=== PATIENT | male | born 1965 | race African-American/Black ===

== ENCOUNTER 2020-11-14 21:12 | Inpatient (IN) | payer MEDICARE ==
[~2020-11-14] VITALS: Ht 172.7 cm; Wt 92.1 kg
[2020-11-14] MEDS ORDERED: METHYLPREDNISOLONE SOD SUCC 125 MG/2 ML VIAL IV STA (21:19)
[2020-11-14] MEDS ORDERED: IPRATROPIUM BROMIDE (0.02%) 0.5MG/2.5ML NEB HHN STA (21:19)
[2020-11-14] MEDS ORDERED: ALBUTEROL (0.083%) 2.5MG/3ML NEB HHN STA (21:19)
[2020-11-14] MEDS ORDERED: NITROGLYCERIN 50MG PREMIX 250 ML IV ONE (21:30)
[2020-11-14] MEDS ORDERED: FUROSEMIDE 40MG/4ML VIAL IV ONE (21:30)
[2020-11-14] MEDS ORDERED: MAGNESIUM 2 G PREMIX 50 ML IV ONE (21:30)
[2020-11-14 22:10] LABS: BASOPHILS % 0.5 % (0.0-2.0); EOSINOPHILS % 3.1 % (0.0-5.0); HEMOGLOBIN. 15.2 g/dL (14.0-18.0); LYMPHOCYTES % 32.4 % (20.0-50.0); MEAN CORPUSCULAR HEMOGLOBIN 31.9 pg (28.0-32.0); MEAN CORPUSCULAR VOLUME 94.5 fL (80.0-94.0); MEAN PLATELET VOLUME 10.1 fl (7.4-10.4); MONOCYTES % 7.4 % (2.0-8.0); NEUTROPHILS % 56.6 % (40.0-76.0); PLATELET 211 x1000/uL (130-400); RED BLOOD CELL COUNT 4.76 mill/uL (4.7-6.1); RED CELL DISTRIBUTION WIDTH 13.4 % (11.6-14.6)
[2020-11-14 22:13] LABS: CHLORIDE 112 mEq/L (98-107)
[2020-11-14] MEDS ORDERED: ASPIRIN 325MG EC TABLET PO NR (23:15)
[2020-11-14 23:43] LABS: BG BASE EXCESS -2.2 mmol/L (-2.0-2.0); BG CARBOXYHEMOGLOBIN 0.5 % (0.5-1.5); BG DEOXYHEMOGLOBIN 0.3 % (0.0-5.0); BG FRACTION INSPIRED OXYGEN 100; BG HCO3 ACT 22.8 mmol/L (22.0-26.0); BG METHEMOGLOBIN 0.4 % (0.0-1.5); BG OXYGEN SATURATION 99.7 % (92.0-98.5); BG OXYHEMOGLOBIN 98.8 % (94.0-97.0); BG PCO2 40.4 mmHg (35.0-45.0); BG PO2 490.5 mmHg (75.0-100.0); BG SAMPLE SITE RIGHT RADIAL; BG VENT MODE MASK - BIPAP
[2020-11-14] MEDS ORDERED: MORPHINE SULFATE 2 MG/ML CPJ (NOT FOR IM USE) IV PRN (23:45)
[2020-11-14] MEDS ORDERED: ACETAMINOPHEN 325MG TABLET PO PRN (23:45)
[2020-11-14] MEDS ORDERED: HYDROCODONE/ACETAMINOPHEN 5/325MG TABLET PO PRN (23:45)
[2020-11-14] MEDS ORDERED: ONDANSETRON HCL 4MG/2ML INJ IV PRN (23:45)
[2020-11-14] MEDS ORDERED: LORAZEPAM 2MG/ML CPJ IV PRN (23:45)
[2020-11-14] MEDS ORDERED: IPRATROPIUM/ALBUTEROL 0.5-3(2.5)MG/3ML NEB NEB PRN (23:45)
[2020-11-15] MEDS ORDERED: CLONIDINE 0.2MG TABLET PO PRN
[2020-11-15 05:12] LABS: HEMATOCRIT. 46.1 % (42.0-52.0); HEMOGLOBIN. 15.7 g/dL (14.0-18.0); MEAN CORPUSCULAR HEMOGLOBIN 32.1 pg (28.0-32.0); MEAN CORPUSCULAR VOLUME 94.5 fL (80.0-94.0); PLATELET 165 x1000/uL (130-400); RED BLOOD CELL COUNT 4.88 mill/uL (4.7-6.1); RED CELL DISTRIBUTION WIDTH 13.1 % (11.6-14.6)
[2020-11-15 05:17] LABS: CHLORIDE 112 mEq/L (98-107)
[2020-11-15 05:24] LABS: PHOSPHORUS 2.3 mg/dL (2.5-4.9)
[2020-11-15 05:26] LABS: CREATINE KINASE 154 IU/L (39-308)
[2020-11-15 05:29] LABS: CREATINE KINASE MB FRACTION 2.7 ng/mL (0.5-3.6)
[2020-11-15 09:45] LABS: PLATELET ESTIMATE NORMAL
[2020-11-15] MEDS ORDERED: DOCUSATE SODIUM 100MG CAPSULE PO PRN (09:45)
[2020-11-15] MEDS ORDERED: MAGNESIUM/ALUMINUM HYDROXIDE/SIMETHICONE 30ML UDC PO PRN (09:45)
[2020-11-15] MEDS: ASPIRIN 81MG EC TABLET PO SCH (09:48)
[2020-11-15] MEDS: ENOXAPARIN 30MG/0.3ML SYR SUBCUT SCH ×2 (09:48→21:07)
[2020-11-15] MEDS: FUROSEMIDE 40MG/4ML VIAL IV SCH ×2 (09:48→17:23)
[2020-11-15] MEDS: METOPROLOL TARTRATE 25MG TABLET PO SCH ×3 (09:51→21:07)
[2020-11-15] MEDS ORDERED: NALOXONE HCL 0.4MG/ML VIAL IV PRN (10:00)
[2020-11-15] MEDS ORDERED: POTASSIUM PHOS,M-BASIC-D-BASIC 10 MMOL in DEXT 5% WATER 246.6667 ML IV NR (12:00)
[2020-11-15 16:21] VITALS: BP 126/87
[2020-11-15 17:00] VITALS: BP 126/87
[2020-11-15] MEDS ORDERED: ASPI-1497 MT (17:37)
[2020-11-15] MEDS ORDERED: FURO20TA4 PO (17:37)
[2020-11-15] MEDS ORDERED: CARV12.545 MT (17:38)
[2020-11-15] MEDS ORDERED: SPIR25TA6 PO (17:39)
[2020-11-15 20:00] VITALS: BP 120/83
[2020-11-15 20:17] LABS: CREATINE KINASE 167 IU/L (39-308)
[2020-11-15 20:18] LABS: CREATINE KINASE MB FRACTION 3.7 ng/mL (0.5-3.6)
[2020-11-16] VITALS: BP 105/79
[2020-11-16 01:13] LABS: CLARITY URINE CLEAR (CLEAR); COLOR URINE YELLOW (YELLOW); KETONES URINE TRACE (NEGATIVE); LEUKOCYTE ESTERASE URINE NEGATIVE (NEGATIVE); NITRITE URINE NEGATIVE (NEGATIVE); OCCULT BLOOD URINE NEGATIVE (NEGATIVE); PH URINE 5.5 (4.5-8.0); PROTEIN URINE 1+ (NEGATIVE); SPECIFIC GRAVITY URINE 1.022 (1.005-1.030); UROBILINOGEN URINE 0.2 E.U./dL (0.2-1.0)
[2020-11-16 01:23] LABS: *AMPHETAMINES SCREEN URINE NEGATIVE (NEGATIVE); *BARBITURATES SCREEN URINE NEGATIVE (NEGATIVE); *BENZODIAZEPINES SCREEN URINE NEGATIVE (NEGATIVE); *COCAINE SCREEN URINE NEGATIVE (NEGATIVE); METHADONE URINE SCREEN NEGATIVE (NEGATIVE)
[2020-11-16 01:24] LABS: CANNABINOID URINE SCREEN NEGATIVE (NEGATIVE); OPIATES URINE SCREEN NEGATIVE (NEGATIVE); PHENCYCLIDINE URINE SCREEN NEGATIVE (NEGATIVE)
[2020-11-16 04:00] VITALS: BP 104/74
[2020-11-16] MEDS ORDERED: OMEPRAZOLE 20MG CAPSULE EXTENDED RELEASE PO SCH (06:30)
[2020-11-16 08:00] VITALS: BP 113/75
[2020-11-16] MEDS: ASPIRIN 81MG EC TABLET PO SCH (08:44)
[2020-11-16] MEDS: METOPROLOL TARTRATE 25MG TABLET PO SCH (08:45)
[2020-11-16] MEDS: FUROSEMIDE 40MG/4ML VIAL IV SCH (08:45)
[2020-11-16] MEDS: ENOXAPARIN 30MG/0.3ML SYR SUBCUT SCH (08:45)
[2020-11-16 10:42] LABS: BASOPHILS % 0.3 % (0.0-2.0); EOSINOPHILS % 1.1 % (0.0-5.0); HEMATOCRIT. 45.9 % (42.0-52.0); HEMOGLOBIN. 15.6 g/dL (14.0-18.0); LYMPHOCYTES % 21.3 % (20.0-50.0); MEAN CORPUSCULAR VOLUME 94.3 fL (80.0-94.0); MEAN PLATELET VOLUME 10.4 fl (7.4-10.4); MONOCYTES % 7.3 % (2.0-8.0); PLATELET 166 x1000/uL (130-400); RED BLOOD CELL COUNT 4.87 mill/uL (4.7-6.1); RED CELL DISTRIBUTION WIDTH 13.3 % (11.6-14.6)
[2020-11-16 10:52] LABS: CHLORIDE 106 mEq/L (98-107)
[2020-11-16 10:59] LABS: PHOSPHORUS 3.3 mg/dL (2.5-4.9)
[2020-11-16 11:00] LABS: LDL CHOLESTEROL 134 mg/dL (5-100)
[2020-11-16 11:01] LABS: HDL CHOLESTEROL 50 mg/dL (40-59); T4 FREE 0.97 ng/dL (0.76-1.46)
[2020-11-16 12:00] VITALS: BP 109/73
[2020-11-16] MEDS ORDERED: FURO-151 MT (12:31)
[2020-11-16 13:32] VITALS: BP 109/73
== END 2020-11-16 16:27 | disposition home or self-care (01) | DRG 291 ==
LOC: ER 21:12 → SUPCPDRO 23:42 → MICUSO 23:43 → EDBD 23:43 → EDBEDREQ 23:58 → EDBEDREQSVC 23:58 → EDBEDREQTM 23:58 → 7EST 11-15 15:47
PROVIDERS: ADMIT Internal Medicine Nephrology; ATTEND Internal Medicine Nephrology
PROC: 5A09357 Assistance with Respiratory Ventilation, Less than 24 Consecutive Hours, Continuous Positive Airway Pressure (ICD-10-PCS; principal; 2020-11-14)
DX: I11.0 Hypertensive heart disease with heart failure (principal); J96.01 Acute respiratory failure with hypoxia; I50.21 Acute systolic (congestive) heart failure; J44.9 Chronic obstructive pulmonary disease, unspecified; E83.39 Other disorders of phosphorus metabolism; E83.41 Hypermagnesemia; E87.8 Other disorders of electrolyte and fluid balance, not elsewhere classified
CPT/HCPCS: 36415; 36600; 71045; 80048; 80053; 80061; 80076; 80305; 81003; 82375; 82550; 82553; 82805; 83735; 83880; 84100; 84439; 84443; 84484; 85025; 93005; 93306; 93970; 94660; 97165; 99291; J1650; J1940; J2930; J3475; J3490; J7060

== ENCOUNTER 2023-10-26 20:41 | Inpatient (IN) | payer SELFPAY ==
[~2023-10-26] VITALS: Ht 172.7 cm; Wt 89.9 kg
[2023-10-26 20:33] VITALS: RESP 33
[~2023-10-26 20:41] MED LIST: ASPI-1497 MT; CARV12.545 MT; FURO-151 MT; FURO20TA4 PO; SPIR25TA6 PO
[2023-10-26] MEDS ORDERED: NITROGLYCERIN 50MG PREMIX 250 ML IV ONE (20:45)
[2023-10-26] MEDS: FUROSEMIDE 40MG/4ML VIAL IV ONE (21:02)
[2023-10-26] MEDS: ASPIRIN 81MG TABLET PO ONE (21:02)
[2023-10-26 21:13] LABS: CHLORIDE 108 mEq/L (98-107); POTASSIUM 3.9 mEq/L (3.5-5.1); SODIUM 141 mEq/L (136-145)
[2023-10-26 21:14] LABS: BASOPHILS % 0.7 % (0.0-2.0); CARBON DIOXIDE 19 mEq/L (21-32); EOSINOPHILS % 1.9 % (0.0-5.0); HEMATOCRIT. 42.9 % (42.0-52.0); HEMOGLOBIN. 14.2 g/dL (14.0-18.0); LYMPHOCYTES % 33.1 % (20.0-50.0); MEAN CORPUSCULAR HGB CONC 33.1 g/dL (31.0-37.0); MEAN CORPUSCULAR VOLUME 96.7 fL (80.0-94.0); MEAN PLATELET VOLUME 10.4 fl (7.4-10.4); NEUTROPHILS % 57.3 % (40.0-76.0); PLATELET 188 x1000/uL (130-400); RED BLOOD CELL COUNT 4.44 mill/uL (4.7-6.1); RED CELL DISTRIBUTION WIDTH 13.6 % (11.6-14.6); WHITE BLOOD COUNT 8.5 x1000/uL (4.5-11.0)
[2023-10-26 21:15] LABS: CALCIUM 8.4 mg/dL (8.7-10.4)
[2023-10-26 21:19] LABS: CREATININE 1.6 mg/dL (0.6-1.3); GLUCOSE 247 mg/dL (70-105); UREA NITROGEN BLOOD 14 mg/dL (9-23)
[2023-10-26 21:20] VITALS: RESP 20
[2023-10-26 21:20] LABS: TROPONIN I HIGH SENSITIVITY 27 ng/L (3.0-53)
[2023-10-26] MEDS: NITROGLYCERIN 50MG PREMIX 250 ML IV ONE (21:48)
[2023-10-26] MEDS ORDERED: IPRATROPIUM/ALBUTEROL 0.5-3(2.5)MG/3ML NEB NEB PRN (22:00)
[2023-10-26] MEDS ORDERED: CLONIDINE 0.1MG TABLET PO PRN (22:00)
[2023-10-26] MEDS ORDERED: NITROGLYCERIN 0.4MG TABLET SL SL PRN (22:00)
[2023-10-26] MEDS ORDERED: MAGNESIUM/ALUMINUM HYDROXIDE/SIMETHICONE 30ML UDC PO PRN (22:00)
[2023-10-26] MEDS ORDERED: ZOLPIDEM TARTRATE 5MG TABLET PO PRN (22:00)
[2023-10-26] MEDS ORDERED: ONDANSETRON HCL 4MG/2ML INJ IV PRN (22:00)
[2023-10-26] MEDS ORDERED: DOCUSATE SODIUM 100MG CAPSULE PO PRN (22:00)
[2023-10-26] MEDS ORDERED: GUAIFENESIN 200MG/10ML SUGAR FREE UDC PO PRN (22:00)
[2023-10-26] MEDS ORDERED: ACETAMINOPHEN 325MG TABLET PO PRN ×2 (22:00)
[2023-10-26 22:30] VITALS: RESP 20
[2023-10-26] MEDS ORDERED: DEXTROSE 50% WATER 50ML SYRINGE IV PRN (22:30)
[2023-10-26 22:50] LABS: IRON 95 ug/dL (65-175); TRIGLYCERIDE 64 mg/dL (0-150)
[2023-10-26 22:51] LABS: LDL CHOLESTEROL 139 mg/dL (5-100)
[2023-10-26 22:52] LABS: CHOLESTEROL 193 mg/dL (<200); HDL CHOLESTEROL 54 mg/dL (>55)
[2023-10-26 22:53] LABS: TOTAL IRON BINDING CAPACITY 262 ug/dl (250-425)
[2023-10-26 22:55] LABS: T4 FREE 0.84 ng/dL (0.89-1.76); THYROID STIMULATING HORMONE 3.61 uIU/mL (0.55-4.78)
[2023-10-26] MEDS: ENOXAPARIN 40MG/0.4ML SYR SUBCUT SCH (23:11)
[2023-10-26 23:27] LABS: FOLIC ACID (FOLATE) SERUM > 20.00 ng/mL (>5.38); VITAMIN B12 SERUM 341 pg/mL (211-911)
[2023-10-27] VITALS (16 sets, daily range): BP systolic 86–130; BP diastolic 57–80; PULSE 61–70; RESP 16–24; TEMP 97.6–99.4
[2023-10-27 01:05] LABS: CREATINE KINASE MB FRACTION 3.5 ng/mL (0.5-3.6)
[2023-10-27] MEDS: BLOOD SUGAR DIAGNOSTIC STRIP TEST SCH (07:30)
[2023-10-27] MEDS: INSULIN LISPRO 100 UNITS/ML SUBCUT SCH (08:00)
[2023-10-27] MEDS: FUROSEMIDE 40MG/4ML VIAL IVP SCH (08:34)
[2023-10-27] MEDS: ASPIRIN 325MG EC TABLET PO SCH (08:34)
[2023-10-27] MEDS: FAMOTIDINE 20MG TABLET PO SCH (08:35)
[2023-10-27] MEDS: SPIRONOLACTONE 25MG TABLET PO SCH (08:36)
[2023-10-27 10:24] LABS: BASOPHILS % 0.2 % (0.0-2.0); EOSINOPHILS % 0.6 % (0.0-5.0); HEMATOCRIT. 43.2 % (42.0-52.0); HEMOGLOBIN. 14.2 g/dL (14.0-18.0); LYMPHOCYTES % 17.2 % (20.0-50.0); MEAN CORPUSCULAR HEMOGLOBIN 31.5 pg (28.0-32.0); MEAN CORPUSCULAR HGB CONC 32.9 g/dL (31.0-37.0); MEAN CORPUSCULAR VOLUME 95.8 fL (80.0-94.0); MEAN PLATELET VOLUME 10.5 fl (7.4-10.4); MONOCYTES % 6.7 % (2.0-8.0); NEUTROPHILS % 75.3 % (40.0-76.0); PLATELET 154 x1000/uL (130-400); RED BLOOD CELL COUNT 4.51 mill/uL (4.7-6.1); RED CELL DISTRIBUTION WIDTH 13.3 % (11.6-14.6); WHITE BLOOD COUNT 7.5 x1000/uL (4.5-11.0)
[2023-10-27 10:40] LABS: CHLORIDE 107 mEq/L (98-107); POTASSIUM 3.4 mEq/L (3.5-5.1); SODIUM 141 mEq/L (136-145)
[2023-10-27 10:41] LABS: CALCIUM 8.9 mg/dL (8.7-10.4); CARBON DIOXIDE 26 mEq/L (21-32)
[2023-10-27 10:46] LABS: CREATININE 1.2 mg/dL (0.6-1.3); GLUCOSE 151 mg/dL (70-105); UREA NITROGEN BLOOD 14 mg/dL (9-23)
[2023-10-27 10:47] LABS: ALANINE AMINOTRANSFERASE 11 IU/L (10-49)
[2023-10-27 10:48] LABS: ASPARTATE AMINOTRANSFERASE 22 IU/L (<34); BILIRUBIN TOTAL 1.1 mg/dL (0.1-1.0); PHOSPHORUS 3.4 mg/dL (2.5-4.9); PROTEIN TOTAL 6.7 g/dL (6.0-8.3)
[2023-10-27 10:56] LABS: TROPONIN I HIGH SENSITIVITY 88 ng/L (3.0-53)
[2023-10-27 16:24] LABS: TROPONIN I HIGH SENSITIVITY 63 ng/L (3.0-53)
[2023-10-27 23:01] LABS: *AMPHETAMINES SCREEN URINE NEGATIVE (NEGATIVE); *BARBITURATES SCREEN URINE NEGATIVE (NEGATIVE); *BENZODIAZEPINES SCREEN URINE NEGATIVE (NEGATIVE)
[2023-10-27 23:02] LABS: *COCAINE SCREEN URINE NEGATIVE (NEGATIVE); CANNABINOID URINE SCREEN NEGATIVE (NEGATIVE); ECSTASY MDMA SCREEN URINE NEGATIVE (NEGATIVE); METHADONE URINE SCREEN NEGATIVE (NEGATIVE); OPIATES URINE SCREEN NEGATIVE (NEGATIVE); PHENCYCLIDINE URINE SCREEN NEGATIVE (NEGATIVE)
[2023-10-28] VITALS (9 sets, daily range): BP systolic 92–113; BP diastolic 61–81; PULSE 63–95; RESP 14–26; TEMP 97.8–98.1; O2SAT 96
[2023-10-28 05:47] LABS: BASOPHILS % 0.3 % (0.0-2.0); EOSINOPHILS % 2.4 % (0.0-5.0); HEMATOCRIT. 41.4 % (42.0-52.0); HEMOGLOBIN. 13.9 g/dL (14.0-18.0); MEAN CORPUSCULAR HEMOGLOBIN 32.2 pg (28.0-32.0); MEAN CORPUSCULAR HGB CONC 33.6 g/dL (31.0-37.0); MEAN CORPUSCULAR VOLUME 95.9 fL (80.0-94.0); MEAN PLATELET VOLUME 10.4 fl (7.4-10.4); MONOCYTES % 11.2 % (2.0-8.0); NEUTROPHILS % 55.1 % (40.0-76.0); PLATELET 143 x1000/uL (130-400); RED BLOOD CELL COUNT 4.31 mill/uL (4.7-6.1); RED CELL DISTRIBUTION WIDTH 13.3 % (11.6-14.6); WHITE BLOOD COUNT 5.8 x1000/uL (4.5-11.0)
[2023-10-28 05:57] LABS: CARBON DIOXIDE 28 mEq/L (21-32); CHLORIDE 106 mEq/L (98-107); POTASSIUM 3.6 mEq/L (3.5-5.1); SODIUM 141 mEq/L (136-145)
[2023-10-28 05:58] LABS: CALCIUM 8.9 mg/dL (8.7-10.4)
[2023-10-28 06:02] LABS: CREATININE 1.2 mg/dL (0.6-1.3); GLUCOSE 87 mg/dL (70-105)
[2023-10-28 06:03] LABS: UREA NITROGEN BLOOD 12 mg/dL (9-23)
[2023-10-28 06:04] LABS: ALANINE AMINOTRANSFERASE 11 IU/L (10-49); ALBUMIN 3.7 g/dL (3.2-4.8); ASPARTATE AMINOTRANSFERASE 17 IU/L (<34)
[2023-10-28 06:05] LABS: BILIRUBIN TOTAL 0.6 mg/dL (0.1-1.0); PHOSPHORUS 4.6 mg/dL (2.5-4.9); PROTEIN TOTAL 6.4 g/dL (6.0-8.3)
[2023-10-28] MEDS ORDERED: ALD50 MT (14:24)
[2023-10-28] MEDS ORDERED: FURO80TA87 MT (14:24)
[2023-10-28] MEDS ORDERED: COR3 MT (14:24)
[2023-10-28] MEDS ORDERED: LOSA-412 MT (14:24)
== END 2023-10-28 16:16 | disposition home or self-care (01) | DRG 194 ==
LOC: ER 20:41 → 5EST 21:34 → EDBEDREQTM 21:45 → EDBEDREQ 21:45 → EDBEDREQSVC 21:45
PROVIDERS: ADMIT Internal Medicine; ATTEND Internal Medicine
PROC: 5A09357 Assistance with Respiratory Ventilation, Less than 24 Consecutive Hours, Continuous Positive Airway Pressure (ICD-10-PCS; principal; 2023-10-26)
PROC: 5A09357 Assistance with Respiratory Ventilation, Less than 24 Consecutive Hours, Continuous Positive Airway Pressure (ICD-10-PCS; 2023-10-27)
DX: I11.0 Hypertensive heart disease with heart failure (principal); N17.0 Acute kidney failure with tubular necrosis; J96.01 Acute respiratory failure with hypoxia; I50.43 Acute on chronic combined systolic (congestive) and diastolic (congestive) heart failure; E83.51 Hypocalcemia
CPT/HCPCS: 36415; 71045; 76770; 80048; 80053; 80061; 80305; 82550; 82553; 82607; 82746; 82962; 83036; 83540; 83550; 83735; 83880; 84100; 84145; 84439; 84443; 84484; 85025; 93005; 93306; 93970; 94660; 99291; J1650; J1940; J3490